=== PATIENT | female | born 1960 | race Caucasian/White ===

== ENCOUNTER 2020-06-07 16:22 | Outpatient (REF) | payer OTHER, SELFPAY ==
--- NOTE | 2020-06-07 13:30 | PAPFT_PTH ---
PATIENT: Irina Fairbanks LOC: [facility] U#:[id number] AGE/SX: 59/F ROOM: RE06/07/[address]: MARGARET Hernandez : 1960 BED: DIS: 06/07/2020 SPEC #: [id number] RECD: 06/07/20 17:47 STATUS: RUBÉN REQ #: [id number] LATRICE: 06/07/20 13:[address]: Diana Jane [facility] Cytology RECD BY: Taylor Sebastian ENTERED: 06/07/20 17:48 SP TYPE: PAPFT OTHR DR: Danielle Tineo APRN Tissues: 1 - CX/ENDOCX FOR PAP SMEARS Procedures: PAP THIN PREP/[facility]VM Screening HPV DNA PROBE Comments: [id number] (ARTESIA WELLS)
== END 2020-06-07 16:42 ==
LOC: LBN 16:22
PROVIDERS: Visit Provider Nurse Practitioner Family
DX: Z12.4 Encounter for screening for malignant neoplasm of cervix (principal)
CPT/HCPCS: 88142; 87624

== ENCOUNTER 2020-06-29 00:18 | Outpatient (CLI) | payer OTHER, SELFPAY ==
--- NOTE | 2020-06-29 12:25 | DI.MAMMO_ITS ---
EXAM: MG MAMMO SCREENING CLINICAL HISTORY: screening TECHNIQUE: Mammograms were interpreted according to the usual protocol including computer analysis w [employer] CAD system, tomosynthesis and C-view imaging. COMPARISON: FINDINGS: The breasts are of moderate density with fairly symmetrical distribution of fibroglandular tissue. N o dominant mass or clumped microcalcification is identified in either breast. The current examinatio n is compared with previous examinations including January 2016 and there has been no gross interval hafsa nge in appearance in comparison with the prior studies. IMPRESSION: No specific evidence of malignancy at this time. Routine screening examinations are suggested at yea rly intervals in this age group according to the ACS ACR guidelines. BI-RADS Category 1 - Negative Breast Density - Category B - Scattered areas of fibroglandular density
== END 2020-06-29 00:38 ==
PROVIDERS: Visit Provider Nurse Practitioner Family
DX: Z12.31 Encounter for screening mammogram for malignant neoplasm of breast (principal)
CPT/HCPCS: 77063; 77067

== ENCOUNTER 2021-07-05 02:22 | Outpatient (CLI) | payer OTHER, SELFPAY ==
[2021-07-05 12:27] LABS: Source Nasal/Nares
[2021-07-05 15:11] LABS: COVID-19 PCR Negative (Negative)
== END 2021-07-05 02:23 | disposition home or self-care (01) ==
LOC: LBO 02:23
PROVIDERS: PCP Nurse Practitioner Family; Visit Provider Surgery
DX: Z20.822 Contact with and (suspected) exposure to COVID-19 (principal)
CPT/HCPCS: 87635

== ENCOUNTER 2021-07-07 09:07 | Day surgery (SDC) | payer OTHER, SELFPAY ==
--- NOTE | 2021-07-06 17:19 | W.COLOREPORT ---
Colonoscopy Report Date of procedure: 07/07/21 Pre-op diagnosis general: crc screen Post-op diagnosis procedure note: other (divertic/polyps ) Surgeon: Sandra Crowell Anesthesia Type: General LMA/ETT Estimated blood loss (mL): 1 Pathology: other Complications: None Disposition: same day Prep: Miralax/Dulcolax Retraction Time: 10 Procedure Description: After informed consent was obtained the patient was taken to the procedure room and placed in a left decubitous position. Monitors were applied and a time out was done. The patients name, date of , procedure, allergies to medications and metal in their body was reviewed. The patient was then sedated. Once sedated and comfortable a rectal exam was done. External exam was normal. Internal exam revealed a normal sphincter tone and no palpable masses. The scope was then introduced and retrofelexed. No internal hemorrhoids were identified. The scope was then advanced to the cecum w/out difficulty. The TI and appendiceal orifice were identified. The prep was . The scope was then slowly retracted over 10 minutes back into the rectum. She does have diverticular disease-they are small and few, confined to the sigmoid colon. There is no signs of active bleeding or infection. She has x3 small polyps. All are flat, 5 mm polyp. 1 is at 70 cm. And 2 were in the rectum. All are removed with a cold biting forcep. All specimens are retrieved and no bleeding is noted.. The scope was removed and the patient was woken up and taken back to Same day surgery in stable condition. The patient tolerated the procedure well and there were no immediate complications. Follow up: The patient should follow up in 5-7years, path pd, unless they develop changes in bowel habits or other new gastrointestinal complaints.
--- NOTE | 2021-07-06 17:21 | PDOC.DSDIS_ITS ---
Discharge Plan Disposition Patient Disposition: HOME Condition: Good Discharge Details Reason For Visit: colon scope Attending Provider: Sandra Crowell Primary Care Provider: Diana Jane Home Meds and New Rx's Prescriptions: Continued cholecalciferol (vitamin D3) 50 mcg (2,000 unit) capsule 50 mcg PO DAILY RF: 0 Discontinued polyethylene glycol 3350 17 gram/dose powder 238 g PO ONCE Qty: 238 RF: 0 bisacodyl [Dulcolax (bisacodyl)] 5 mg tablet,delayed release (DR/EC) 5 mg PO ONCE Qty: 4 RF: 0 Discharge Instructions Additional Instructions: DSU Colonoscopy Post- Op Instructions Instructions for Everyone who is given Anesthesia: For your safety, please do the following for the next twenty-four (24) hours: *Do Not operate a motor vehicle (car, truck, motorcycle, etc.) *Do Not drink alcoholic beverages or use any recreational drugs for the first 24 hours or while taking pain medications. The medications in your body may have a reaction that can be dangerous. *Do Not make any important decisions or sign any important papers. Findings: -diverticula -polyps Follow up: repeat scope in 5-7yrs. My office will send a letter in 2 to 3 weeks time detailing what types of polyps they were and when we want you to repeat the colonoscopy. 1. No lifting over 20 pounds or strenuous activity for the first 24 hours after your procedure. After 24 hours there are no restrictions on your activity but you may feel fatigued for a few days. 2. After you arrive home you may have a light meal and return to your normal diet as you can tolerate it without feeling sick to your stomach. 3. You may have a bloated, gaseous feeling in your belly (abdomen) after a colonoscopy. Passing gas and belching will help. Walking or lying down on your left side with your knees flexed may relieve the discomfort. Call the office at [phone] (Office) or [phone] (Hospital) right away if you notice any of the following: a.Vomiting of blood or ?coffee ground stools?. b.Rectal bleeding 1Tbsp, blood clots or continuous bleeding. c.Severe belly (abdominal) pain. d.A hard distended belly (abdomen) and an inability to pass gas. 4. Please don?t expect to have a normal BM (bowel movement) for 2-3 days after your procedure. 5. If there are questions regarding the findings of your procedure, please contact your doctor 6. If you are unable to contact your doctor with a problem, contact the hospital at [phone]. 7. Continue all your regular medications unless directed otherwise. I understand the above instructions and have no questions. Signature of Patient or Adult Escort Name of Responsible Adult Escort Signature of Nurse Date/Time Activity:: see above Diet:: see above Discharge Orders Discharge Orders: Discharge Order (Routine); Ordered 07/06/21 Ordered By: Sandra Crowell DS: Diagnosis Discharge Diagnosis (1) Screening for colon cancer: Status: Deleted (2) Diverticula of colon: Status: Acute (3) History of colon polyps: Status: Acute
[2021-07-07 09:22] VITALS: BP 96/63; PULSE 97; RESP 16; TEMP 36.6; O2SAT 97
--- NOTE | 2021-07-07 09:30 | W.ANESPRE ---
General Info Date of Service Date Performed: 07/07/21 Height: 5 ft 8 in Weight: 64.4 kg Body Mass Index (BMI): 21.6 Surgical Procedure: Operation Date: 07/07/21 09:50 Proposed Procedures Side Surgeon p Colonoscopy Sandra Crowell, Actual Procedures Side Surgeon p Colonoscopy Not Applicable Sandra Crowell, Pre-Op Diagnosis Post-Op Diagnosis COLON CANCER SCREENING Meds Allergies and Home Medications Allergies Allergy/AdvReac Type Severity Reaction Status Date / Time No Known Allergies Allergy Unverified 07/07/21 09:25 Home Medication Medication Instructions Recorded cholecalciferol (vitamin D3) 50 50 mcg PO DAILY 06/23/21 mcg (2,000 unit) capsule Current Visit Medications: Current Medications Generic Name Dose Route Start Last Admin Trade Name Freq PRN Reason Stop Dose Admin Hyoscyamine Sulfate 0.125 mg 07/06/21 17:18 Hyoscyamine 0.125 Mg Sl/Oral/Chew SL DIRECTED PRN Ringer's Solution 1,000 mls @ 80 mls/hr 07/07/21 06:00 IV 08/05/21 23:59 INFUSION ARAVIND IV Miscellaneous Supplies 1 each 07/07/21 06:00 Iv Access IV 08/05/21 23:59 DIRECTED ARAVIND Ondansetron HCl 4 mg 07/06/21 17:18 Ondansetron 4 Mg/2 Ml Vial IVP Q4H PRN PRN Nausea / Vomiting Sodium Chloride 0 ml 07/07/21 06:00 Normal Saline Flush 10 Ml Syr IV 08/05/21 23:59 PRN PRN Sodium Chloride 0 ml 07/07/21 06:00 Normal Saline 10 Ml Vial IJ 08/05/21 23:59 DIRECTED PRN Sterile Water 0 ml 07/07/21 06:00 Water,Injection,Sterile 10 Ml Vial IJ 08/05/21 23:59 DIRECTED PRN PFSH Active Problems Active Problems: Problem Status Onset Code Screening for colon cancer Z12.11 Medical History Active Problem List (Updated 07/07/21 @ 09:37 by Dionne Moncada) Screening for colon cancer (Acute) Medical History (Updated 07/07/21 @ 09:37 by Dionne Moncada) Palpitations Surgical History Surgical History Hx of dilation and curettage 1994 Tobacco Smoking/Tobacco Use Status: Never Alcohol Alcohol Intake: current Alcohol intake frequency: a few times a month Substance Use Substance use type: does not use Vital Signs and Lab Results Vital Signs Most Recent Vital Signs in EMR: Most Recent Vital Signs Temp Pulse Resp BP Pulse Ox 36.6 C 97 H 16 96/63 L 97 07/07/21 09:22 07/07/21 09:22 07/07/21 09:22 07/07/21 09:22 07/07/21 09:22 Lab Results Blood Type / Crossmatch: No Data to Display Complete Blood Count: No Data to Display Complete Metabolic Panel: No Data to Display Liver Function Panel: No Data to Display Coagulation Panel: No Data to Display Cardiac Panel: No Data to Display Arterial Blood Gas: No Data to Display Venous Blood Gas: No Data to Display Pancreas Panel: No Data to Display Thyroid Panel: No Data to Display Infectious Disease: Coronavirus (COVID-19)(PCR) Negative (Negative) 07/05/21 09:25 07/05/21 Coronavirus 2019 Source Nasal/Nares 07/05/21 09:25 07/05/21 Blood Cultures: No Data to Display Toxicology Panel: No Data to Display Anesthesia Assessment and Plan Anesthesia History Personal History: No History of Anesthesia Complications and Malignant Hyperthermia Family History: No Family History of Anesthesia Complications and Malignant Hyperthermia Exercise Tolerance Exercise Tolerance: Metabolic Equivalents>4 Pertinent Negatives Pertinent Negatives: No Symptoms of GERD, No Major Cardiovascular Symptoms or Complaints (Palpitations, worked up in past slight mitral valve leak per patient) and No Major Pulmonary Symptoms or Complaints Cardiac & Pulmonary Exam Cardiac Exam: Normal S1/S2 Heart Sounds Pulmonary Exam: Clear Bilateral Breath Sounds Implantable Cardiac Device Does patient have a Pacemaker or an ICD?: No Airway Exam Known Difficult Airway: No Mallampati Class: 1 Mouth Opening: Normal (> 3cm) Thyromental Distance: Greater than 3 cm Neck Range of Motion: Full ROM Neck Circumference: Normal Teeth Condition: Normal Dentition and Other (Prominent front teeth) ASA Classification ASA Score: ASA 2 Emergency Case?: No NPO Status NPO Status: NPO Clears >2 hours, Solids >8 hours Anesthesia Plan Resuscitation Status: Full Code Anesthesia Technique: General Anesthesia Airway Planned: Natural Airway Monitors Used: Standard Monitors
[2021-07-07 09:36] VITALS: BMI 21.6
[2021-07-07] MEDS: Lactated Ringers 1,000 ML 80 ML IV (09:36)
--- NOTE | 2021-07-07 09:54 | BOWEL_PTH ---
PATIENT: Irina Fairbanks LOC: [facility] U#:[id number] AGE/SX: 60/F ROOM: RE07/07/[address]: Sandra Crowell : 1960 BED: DIS: 07/07/2021 SPEC #: [id number] RECD: 07/08/21 10:09 STATUS: RUBÉN RE #: [id number] LATRICE: 07/07/21 09:[address]: Sandra Crowell DEPT: Surgical Specimen RECD BY: Irina Bernal ENTERED: 07/08/21 10:11 SP TYPE: Bowel OTHR DR: Diana Jane, MACHINERY ENGINEER Tissues: 1 - BIOPSY BOWEL 2 - BIOPSY BOWEL Procedures: GROSS AND MICRO LEVEL 4 Comments: [id number]
[2021-07-07 10:11] VITALS: BP 87/56; PULSE 71; RESP 16; TEMP 36.6; O2SAT 100
[2021-07-07 10:51] VITALS: BP 115/67; PULSE 78; RESP 16; TEMP 36.4; O2SAT 98
--- NOTE | 2021-07-07 11:06 | W.ANESPOSTOP ---
Postoperative Evaluation Date, Time and Location Date Performed: 07/07/21 Time Performed: 10:49 Patient Location: Day Surgery Unit Vital Signs Most Recent Imported Vital Signs: Most Recent Vital Signs Temp Pulse Resp BP Pulse Ox 36.4 C L 78 16 115/67 98 07/07/21 10:51 07/07/21 10:51 07/07/21 10:51 07/07/21 10:51 07/07/21 10:51 Pain Score Most Recent Pain Score: Most Recent Pain Score Pain Level 0 07/07/21 10:51 Assessment Mental Status: Awake (Alert & Oriented to Patient Baseline) Airway and Respiratory Function: Patent airway with normal (patient baseline) respiratory exam Cardiovascular Function: Hemodynamically Stable Hydration Status: Adequately Hydrated Nausea & Vomiting: No Nausea or Vomiting Pain: Pt. Denies Any Pain Peripheral Nerve Block: Patient did not receive a nerve block
== END 2021-07-07 11:09 | disposition home or self-care (01) ==
PROVIDERS: PCP Nurse Practitioner Family; Visit Provider Surgery
PROC: 0DJD8ZZ Inspection of Lower Intestinal Tract, Via Natural or Artificial Opening Endoscopic (ICD-10-PCS; CPT 45378; principal; 2021-07-07 09:45)
DX: Z12.11 Encounter for screening for malignant neoplasm of colon (principal); D12.8 Benign neoplasm of rectum; D12.4 Benign neoplasm of descending colon; K57.30 Diverticulosis of large intestine without perforation or abscess without bleeding; Z86.010 Personal history of colon polyps
CPT/HCPCS: 45380; 88305; J2001

== ENCOUNTER 2022-11-12 02:13 | Emergency (ER) | payer BC, SELFPAY ==
[2022-11-12] VITALS (30 sets, daily range): BP systolic 103–115; BP diastolic 55–70; PULSE 79–93; RESP 11–22; TEMP 36.9; O2SAT 95–100
--- NOTE | 2022-11-12 02:00 | RT.EKG_ITS ---
APPROVED REPORT Exam: Resting ECG Reason for Exam: sudden onset dizziness Patient Location: E HR:81 bpm ECG Measurements Heart Rate 81 AXIS WY 160 P 76 QRSd 93 QRS 35 QT 386 T 59 QTc 450 Conclusion Sinus rhythm...normal P axis, V-rate 60- 99 Narrow complex normal sinus rhythm at a rate of 81. Normal axis. Intervals within normal limits. N o ST segment abnormalities. No T wave inversions. No acute injury pattern. No prior for comparison .
--- NOTE | 2022-11-12 02:15 | DI.CT_ITS ---
Exam(s) CT HEAD WO EXAM: CT HEAD WO CLINICAL HISTORY: History of falling with head strike. TECHNIQUE: Imaging Protocol: Axial computed tomography images with coronal and sagittal reformatted images were created and reviewed COMPARISON: No exams were available for comparison FINDINGS: Ventricles and Extra axial spaces: Normal in size and morphology for the patient's age. Hemorrhage: None. Cerebral parenchyma: Normal. Midline shift: None. Brainstem/Cerebellum: Normal. Calvarium: Normal. Visualized Paranasal sinuses/Mastoids: Clear. Soft Tissues: There is mild swelling in the right periorbital soft tissue region. The globe and retr o-orbital soft tissues are unremarkable. IMPRESSION: 1. No acute intracranial process. 2. Mild right periorbital soft tissue swelling. RADIATION DOSE DELIVERED: 691.61mGy.cm Total DLP DATA REPOSITORY: All CT scans at this facility are submitted to the National Radiology Data Registry (NRDR) Dose Index Registry (DIR) with the [employer] (ACR). RADIATION OPTIMIZATION: All CT scans at this facility use at least one of these dose optimization te chniques: automated exposure control; mA and/or kV adjustment per patient size (includes targeted exa ms where dose is matched to clinical indication); or iterative reconstruction.
--- NOTE | 2022-11-12 02:28 | W.ED.GENAD ---
Discharge Plan Disposition Patient Disposition: Home Discharge Details Clinical Impression: Syncope and collapse, Eyebrow laceration, Immunization, tetanus-diphtheria ED Provider: Ruben Dave Home Meds and New Rx's Prescriptions: No Action No Known Home Meds Discharge Instructions Additional Instructions: You were seen in the emergency department for your episode of passing out. Your blood work showed no sign of heart attack. Your CAT scan showed no sign of any bleeding in your head nor any blood clots in your lungs. Your laceration was closed with Steri-Strips. Please keep these on until they fall off on their own. Please do not soak these in water. If you develop streaking signs of infection from your laceration or any fevers please return to the emergency department. Otherwise please follow-up with your primary care provider for the possibility of a Holter monitor and an echocardiogram which is an ultrasound of your heart. If you develop black or bloody stools or if you pass out again please return to the emergency department. Medical Decision Making This is an overall well-appearing normothermic and not tachycardic 62-year-old female with syncope and collapse concerning for multiple etiologies. She has had chest tightness but a nonischemic ECG. We will obtain 2 sets of troponin given recent onset of symptoms. She is low risk for PE however given her syncope we will send a D-dimer and based on years criteria will tolerate up to 1000 and if less than or equal to 1000 will defer CTA given no hemoptysis and no calf pain. She said no black nor bloody stools to suggest symptomatic anemia. She is neurologically intact and so my suspicion is low for CVA. Will obtain a CT head given head strike to assess for intracranial hemorrhage. Given no APD I am not concerned for retrobulbar hematoma. Her laceration is superior to her lacrimal sac so I am not concerned for lacrimal sac involvement. Will provide LET for laceration cleansed and assess for need for primary closure with sutures versus Steri-Strips. It is certainly possible she could have mild aortic stenosis however I did not hear a systolic ejection murmur. In addition her syncope was nonexertional. She has no history of heart failure. She does not currently endorse any shortness of breath. If her ED evaluation is unremarkable she will likely benefit from a Holter monitor with her primary care provider to assess for any dysrhythmias and an echocardiogram. She had no tonic-clonic like activity nor any postictal phase to suggest seizure. Based on the location of the laceration I am not concerned for lacrimal sac involvement. Per Nexus criteria, cervical CT not obtained. The patient had no c-spine midline tenderness, no evidence of intoxication, was AAOx3, had no focal neurological deficits, and no painful distracting injuries. In the setting of syncope I considered: High risk features: 1. Age of the patient (elderly a greatest risk) 2. Syncope during exertion 3. Family history of sudden [place] syncope rule: 1. History of CHF 2. Hematocrit < 30 3. EKG abnormalities 4. Present shortness of breath 5. Systolic blood pressure less than 90 Cardiac arrhythmia/EKG or abnormalities considered: 1. ACS: No ST changes 2. Tachy-nabeel: No blocks 3. WPW: No delta wave 4. Brugada: No RSR'; R-bundle appearance 5. HCM: No LVH; needle Qs/ T-wave inversions 6. Short/ Long QT: 300 < QTc < 500; no family hx 7. Arrhythmogenic Right Ventricular Dysplasia: No epsilon wave, no inverted Ts in anterior precordium 8. No signs of ASD in inferior leads. 2:53 AM CBC with mild leukocytosis no anemia nor thrombocytopenia. Compared to prior dated 8 years ago anemia has resolved and leukocytosis is not present.Reassuring basic metabolic panel with no EVERT no hyperglycemia no anion gap. Mildly elevated BUN. 3:15 AM Patient's D-dimer returned markedly elevated. We will proceed to CTA to assess for PE. Initial troponin negative. 6:15 AM I met with the patient after her second troponin returned negative. She had no dysrhythmias on telemetry in the ED. She had no recurrent syncope. I have asked health community youth secretary Zoë to have the patient set up with a primary care provider to have a Holter monitor and an echocardiogram. I advised the patient, her sister, and her to return the patient to the ED if she developed recurrent syncope any focal areas of weakness or if they had any other concerns. Chronic conditions affecting the care of the patient: N/A History obtained from an outside historian: Paramedics and External record review: N/A Diagnostic interpretations performed by me: [Per my independent interpretation chest x-ray shows:] N/A [Per my independent interpretation EKG shows:] Narrow complex normal sinus rhythm at a rate of 81. Normal axis. Intervals within normal limits. No ST segment abnormalities. No T wave inversions. No acute injury pattern. Medications: Fluids & analgesia with IV acetaminophen Social determinants of health affecting disposition: N/A Management discussed with: N/A Treatment/interventions considered: Hospitalization given syncope but given age less than 65 and no red high risk features I felt that the patient was appropriate for discharge with outpatient follow-up. Response to therapies provided: [place] improved following normal saline HPI General Date/Time Provider Initiated Documentation: 11/12/22 02:24. HPI Narrative: This is a previously healthy 62-year-old female arriving via EMS following a syncopal episode. Patient was in her usual state of health yesterday evening. She went to bed. She woke up and reportedly felt dizzy and subsequently syncopized. She called out her 's name beforehand. She fell forward and hit her face breaking her glasses on the right side of her face. She did not lose control of her bowels or bladder. She has not had any black nor bloody stools. Her dizziness has resolved. She does have some tightness in her chest. It does not radiate. She has no history of hypertension hyperlipidemia coronary artery disease nor diabetes. She had a similar episode approximately 3 months ago when she was in [place] but she declined transport at that time. She received 4 mg of ondansetron and 500 cc of fluid with the paramedics. She reports that she remotely had a Holter monitor which showed an arrhythmia and an echocardiogram which showed mitral regurgitation. There is no family history of sudden cardiac . She has had no neck pain. She denies routine tobacco and illicits. She occasionally drinks ethanol but denies history of withdrawal. She takes no medications. Related Data Home Medications Medication Instructions Recorded Confirmed Unknown [No Known Home Meds] 11/12/22 11/12/22 Allergies Allergy/AdvReac Type Severity Reaction Status Date / Time No Known Allergies Allergy Unverified 11/12/22 02:49 [facility] All Active Problems (Updated 11/12/22 @ 03:24 by Ruben Dave MD) Syncope and collapse (Acute) Eyebrow laceration (Acute) Immunization, tetanus-diphtheria (Acute) Tubular adenoma (Acute) History of colon polyps (Acute) Diverticula of colon (Acute) Medical History (Updated 11/12/22 @ 03:24 by Ruben Dave MD) Palpitations Surgical History (Updated 07/13/21 @ 13:43 by Saira Porter RN) History of colonoscopy with polypectomy (~07/07/21) Hx of dilation and curettage 1994 Family History Mother Hyperlipidemia Father Esophageal cancer Sister Vaginal cancer Social History (Updated 06/23/21 @ 09:36 by PATY Babin) Smoking/Tobacco Use Status: Never Smoking risk assessment performed?: Yes Alcohol Intake: current Alcohol Intake frequency: a few times a month Substance use type: does not use Do you feel safe at home: Yes Do you feel safe in your relationship?: Yes Exam Narrative Exam Narrative: General: Anxious-appearing in no acute distress speaking in complete sentences. Head: Normocephalic, on the right eyebrow there is a hemostatic approximately 2 cm in length. Eye: Pupils equal, round reactive to light. Extraocular eye movements intact. No conjunctival injection. No scleral icterus. No afferent pupillary defect. Laceration is superior to the lacrimal sac. Ear, nose, mouth, throat: Grossly normal inspection. Normal voice, handling secretions normally. Neck: Trachea midline. Cardiovascular: Well-perfused distal extremities. Respiratory: Nonlabored respiration. Gastrointestinal: Nondistended abdomen. Musculoskeletal: No edema. Moving all 4 extremities spontaneously. Skin: Normal for age and race, grossly normal temperature and turgor. No acute rash. Neurologic: Alert and appropriate, no apparent acute deficits. GCS 15. Cranial nerves II through XII intact grossly. No dysmetria. No dysdiadochokinesia. 5 out of 5 bilateral upper and lower extremity strength. Psychiatric: Mood and manner are appropriate. Grooming and personal hygiene are appropriate. Procedures Laceration Laceration 1: Site: face Side (If applicable): right Size (cm): 2 Description: linear Depth: simple, single layer Local Anesthetic: other anesthetic (L ET) Pre-repair: irrigated extensively Skin layer closed with: other (5 Steri-Strips)
[2022-11-12] MEDS: Lidocaine/Epinephri/Tetracaine Topical Gel 3 ML TP (02:37)
[2022-11-12] MEDS: Acetaminophen 500 MG TAB 1000 MG PO (02:37)
[2022-11-12 02:45] LABS: Abs Immature Grans 0.05 10^3/uL (0.0-0.06); Absolute Eosinophil Count 0.05 10^3/uL (0.0-0.7); Absolute Lymphocyte Count 1.21 10^3/uL (1.2-3.4); Basophils % 0.4; Eosinophils % 0.4; HCT 41.1 % (36.0-46.0); HGB 13.7 g/dL (11.2-15.7); Immature Grans % 0.4; Lymphocytes % 10.6; MCH 28.5 pg (27.0-33.0); MCHC 33.3 % (32.0-36.0); MCV 85 fL (80-95); MPV 9.1 fL (8.0-11.0); Monocytes % 3.5; Neutrophils % 84.7; Platelet Count 241 10^3/uL (130-400); RBC 4.81 10^6/uL (3.93-5.22); RDW 12.6 % (11.7-14.6); RDW-SD 39.4 fL; WBC 11.39 10^3/uL (4.4-10.8)
[2022-11-12 02:48] LABS: Absolute Basophil Count 0.05 10^3/uL (0.0-0.2); Absolute Neutrophil Count 9.65 10^3/uL (1.2-6.7)
[2022-11-12 02:56] LABS: Anion Gap 7.8 mmol/L (3-11); BUN 19 mg/dL (7-18); CO2 28.2 mmol/L (21.0-32.0); CREATININE 0.9 mg/dL (0.55-1.02); Calcium 8.5 mg/dL (8.5-10.1); Chloride 108 mmol/L (98-107); ETHANOL BLOOD < 3.0 mg/dL (<10); Estimated GFR 73.19 (mL/min/1.73m2); Glucose 102 mg/dL (74-106); Potassium 3.6 mmol/L (3.5-5.1); Sodium 144 mmol/L (136-145)
[2022-11-12] MEDS: Normal Saline 500 ML IV (03:02)
[2022-11-12 03:03] LABS: Troponin I < 50 ng/L (<or=60)
--- NOTE | 2022-11-12 03:15 | DI.CT_ITS ---
Exam(s) CT CHEST PE CTA EXAM: CT CHEST PE CTA CLINICAL HISTORY: Positive D-dimer and syncope. TECHNIQUE: Imaging Protocol: Axial CT angiography was performed with multi-slice acquisition and mu lti-planar and/or 3D reconstructions. CONTRAST MATERIAL: Intravenous: Omnipaque 350 contrast volume:65 mL COMPARISON: No exams were available for comparison FINDINGS: Tracheobronchial tree: Patent where visualized. Pulmonary parenchyma: No consolidation or dominant measurable mass. No architectural distortion. Mild dependent atelectatic changes. Pulmonary Arteries: No evidence of filling defect to suggest pulmonary emboli. Mediastinum and Lisa: No dominant adenopathy or fluid collection. The esophagus is unremarkable. Visualized thyroid gland: Unremarkable. Pleura: No effusion or pneumothorax. Heart: The heart is not dilated. No coronary artery calcifications are seen. No pericardial effusion. Aorta: Thoracic aorta non-dilated. No evidence of dissection. Upper abdomen: There are multiple hepatic cysts present. Soft tissues: Unremarkable. Bones: Within normal limits for the patient's age. IMPRESSION: 1. No evidence of pulmonary embolism, thoracic aortic dissection or aneurysm. 2. No acute pulmonary process. RADIATION DOSE DELIVERED: 363.99mGy.cm Total DLP DATA REPOSITORY: All CT scans at this facility are submitted to the National Radiology Data Registry (NRDR) Dose Index Registry (DIR) with the [employer] ([employer]). RADIATION OPTIMIZATION: All CT scans at this facility use at least one of these dose optimization te chniques: automated exposure control; mA and/or kV adjustment per patient size (includes targeted exa ms where dose is matched to clinical indication); or iterative reconstruction.
[2022-11-12 03:16] LABS: D-Dimer 2721 ng/mlFEU (<500)
[2022-11-12] MEDS: Omnipaque 350 MG/ML 100 ML BTL IJ (03:25)
[2022-11-12] MEDS: Normal Saline Flush 10 ML SYR IVP (03:26)
[2022-11-12] MEDS: Normal Saline - Diluent 50 ML VIAL IJ (03:26)
--- NOTE | 2022-11-12 04:03 | DI.VRAD_ITS ---
PROCEDURE INFORMATION: Exam: CT Head Without Contrast Exam date and time: 11/12/2022 3:30 AM Age: 62 years old Clinical indication: Injury or trauma; Laceration; Consciousness not specified; Without residual foreign body; Injury date: 11/12/22; Injury details: HX of falling with head strike, lac lateral of right eye TECHNIQUE: Imaging protocol: Computed tomography of the head without contrast. Radiation optimization: All CT scans at this facility use at least one of these dose optimization techniques: automated exposure control; mA and/or kV adjustment per patient size (includes targeted exams where dose is matched to clinical indication); or iterative reconstruction. COMPARISON: No relevant prior studies available. FINDINGS: Brain: Normal. No hemorrhage. Unremarkable white matter. No mass effect. Cerebral ventricles: No ventriculomegaly. Paranasal sinuses: Visualized sinuses are unremarkable. No fluid levels. Mastoid air cells: Visualized mastoid air cells are well aerated. Bones/joints: Unremarkable. No acute fracture. Soft tissues: Right preseptal periorbital soft tissue swelling. Globe appears intact IMPRESSION: 1. Right preseptal periorbital soft tissue swelling. Globe appears intact 2. No acute intracranial hemorrhage Dictated and Authenticated by: Lidia Camara MD. Ordering:LEEANNA Miranda MD
--- NOTE | 2022-11-12 04:11 | DI.VRAD_ITS ---
PROCEDURE INFORMATION: Exam: CTA Chest With Contrast Exam date and time: 11/12/2022 3:50 AM Age: 62 years old Clinical indication: Abnormal findings; Abnormal diagnostic tests; Elevated d-dimer; Shortness of breath and other: Syncope; Patient HX: Syncope and positive d-dimer TECHNIQUE: Imaging protocol: Computed tomographic angiography of the chest with contrast. 3D rendering (Not supervised by radiologist): MIP and/or 3D reconstructed images were created by the technologist. Radiation optimization: All CT scans at this facility use at least one of these dose optimization techniques: automated exposure control; mA and/or kV adjustment per patient size (includes targeted exams where dose is matched to clinical indication); or iterative reconstruction. Contrast material: OMNIPAQUE 350; Contrast volume: 65 ml; Contrast route: INTRAVENOUS (IV); COMPARISON: No relevant prior studies available. FINDINGS: Pulmonary arteries: Normal. No pulmonary emboli. Aorta: Unremarkable. No aortic aneurysm. No aortic dissection. Lungs: Unremarkable. No consolidation. No masses. Pleural spaces: Unremarkable. No pneumothorax. No pleural effusion. Heart: Unremarkable. No cardiomegaly. No pericardial effusion. Lymph nodes: Unremarkable. No enlarged lymph nodes. Liver: Multiple simple hepatic cysts present Bones/joints: Unremarkable. No acute fracture. Soft tissues: Unremarkable. IMPRESSION: 1. No evidence of pulmonary embolism 2. No focal consolidation Dictated and Authenticated by: Lidai Camara MD. Ordering:LEEANNA Miranda MD
[2022-11-12 05:54] LABS: Troponin I < 50 ng/L (<or=60)
--- NOTE | 2022-11-12 06:16 | NUR.NOTE ---
Referral to Care Management, patient needs to establish pcp to f/u for syncope and to determine if patient needs stress test and echocardiogram.Nursing Note:
--- NOTE | 2022-11-12 10:22 | NUR.NOTE ---
Nursing Note: Accessed pt chart to see who the PCP was.
== END 2022-11-12 06:44 | disposition home or self-care (01) ==
LOC: ER 06:29
PROVIDERS: Emergency Provider Emergency Medicine
DX: R55 Syncope and collapse (principal); S01.111A Laceration without foreign body of right eyelid and periocular area, initial encounter; D72.829 Elevated white blood cell count, unspecified; R79.89 Other specified abnormal findings of blood chemistry; Z23 Encounter for immunization; W19.XXXA Unspecified fall, initial encounter; W22.8XXA Striking against or struck by other objects, initial encounter
CPT/HCPCS: 12011; 71275; 80048; 90471; 93005; 96360; 99285; 70450; 80320; 84484; 85025; 85379; 93010; J3490

== ENCOUNTER 2022-11-15 11:19 | Outpatient (RCR) | payer BC, SELFPAY ==
--- NOTE | 2022-11-15 11:15 | HOLTER_ITS ---
APPROVED REPORT Conclusion This is a 48-hour Holter monitor ordered for syncope Rhythm throughout is sinus with an average heart rate of 78. Minimum was 58, maximum 141 There were rare ventricular ectopic beats There were occasional atrial premature beats There was no atrial fibrillation, no SVT, no high-grade AV block, no pauses greater than 3 seconds Reported patient symptoms had no correlation to any dysrhythmia
== END 2022-12-02 23:59 | disposition home or self-care (01) ==
LOC: CARDOPNVT 11:19
PROVIDERS: PCP Family Medicine; Visit Provider Family Medicine
DX: R55 Syncope and collapse (principal); I49.1 Atrial premature depolarization
CPT/HCPCS: 93225; 93226

== ENCOUNTER 2022-11-30 01:42 | Outpatient (CLI) | payer BC, SELFPAY ==
[2022-11-30 12:37] LABS: ALT 25 U/L (14-59); AST 17 U/L (15-37); Albumin 4.1 g/dL (3.4-5.0); Alkaline Phosphatase 131 U/L (46-116); Bilirubin, Direct 0.1 mg/dL (0.0-0.2); Bilirubin, Total 0.5 mg/dL (0.2-1.0); TSH (W/Ref FT4) 0.71 uIU/mL (0.36-3.74); Total Protein 7.6 g/dL (6.4-8.2)
[2022-11-30 12:48] LABS: Calculated LDL 116 mg/dL (<100); Cholesterol 192 mg/dL (<200); HDL Cholesterol 65 mg/dL (40-60); Triglyceride 58 mg/dL (<150)
[2022-12-05 11:03] LABS: Metanephrine, Free <0.20 nmol/L (<0.50)
== END 2022-11-30 01:43 | disposition home or self-care (01) ==
PROVIDERS: PCP Family Medicine; Visit Provider Family Medicine
DX: Z13.6 Encounter for screening for cardiovascular disorders; R55 Syncope and collapse
CPT/HCPCS: 36415; 80061; 80076; 82533; 83835; 84443

== ENCOUNTER 2022-11-30 10:56 | Outpatient (CLI) | payer BC, SELFPAY | END 2022-11-30 10:57 | disposition home or self-care (01) | PROVIDERS: PCP Family Medicine; Visit Provider Family Medicine | DX: R55 Syncope and collapse (principal) | CPT/HCPCS: 93270 ==

== ENCOUNTER 2022-12-03 14:38 | Outpatient (REF) | payer BC, SELFPAY ==
--- NOTE | 2022-12-03 12:00 | PAPFT_PTH ---
PATIENT: Irina Fairbanks LOC: [facility] U#:[id number] AGE/SX: 62/F ROOM: RE12/03/[address]: Emma Jensen MD : 1960 BED: DIS: 12/03/2022 SPEC #: [id number] RECD: 12/03/22 18:16 STATUS: RUBÉN REVonnie #: [id number] LATRICE: 12/03/22 12:[address]: Emma Jensen DEPT: [facility] Cytology RECD BY: Taylor Sebastian ENTERED: 12/03/22 18:17 SP TYPE: PAPFT AISLINN DR: Dorothy Davila Tissues: 1 - CX/ENDOCX FOR PAP SMEARS Procedures: PAP THIN PREP/UVM Screening HPV DNA PROBE Comments: [id number]
== END 2022-12-03 14:39 | disposition home or self-care (01) ==
LOC: LBN 14:38
PROVIDERS: PCP Family Medicine; Visit Provider Obstetrics & Gynecology
DX: Z12.4 Encounter for screening for malignant neoplasm of cervix (principal); Z11.51 Encounter for screening for human papillomavirus (HPV)
CPT/HCPCS: 88142; 87624

== ENCOUNTER 2022-12-04 04:27 | Outpatient (CLI) | payer BC, SELFPAY ==
--- NOTE | 2022-12-04 06:45 | DI.MAMMO_ITS ---
Exam(s) MAMMO SCREENING EXAM: MAMMO SCREENING CLINICAL HISTORY: screening,z12.39. TECHNIQUE: Bilateral full field digital CC and MLO mammographic images were obtained with 3D tomosyn thesis and utilizing computer aided detection (CAD). COMPARISON: Prior mammograms were reviewed. FINDINGS: There has been no significant change in the appearance and distribution of the fibroglandular tissue. There are no CAD designations. There are no new spiculated masses nor malignant appearing microcalcification groups. There is no significant architectural distortion nor skin thickening-retraction. IMPRESSION: No radiographic evidence of malignancy. BI-RADS Category 1 - Negative Breast Density - Category B - Scattered areas of fibroglandular density Breast density Category C or D implies that the patient has dense breast tissue. Dense breast tissue can make it harder to find cancer on a mammogram. Dense breast tissue is also associated with an incr eased risk of breast cancer. This information about the result of the mammogram report was provided to the patient to raise their awareness. Use this report when you speak with the patient about their risks for breast cancer, which includes their family history. At that time, you may recommend additional screening tests (Ultrasoun d or MRI) as these tests may add significant information. A negative radiographic report should not delay biopsy if a dominant or clinically suspicious mass is present. Up to ten percent of cancers are not identified on mammography. A negative report may reinforce clinical impression. Adenosis and dense breasts may obscure an underlying neoplasm. False positive reports average 6 to 10%. Patient will receive a letter notifying them of these results.
== END 2022-12-04 04:47 ==
PROVIDERS: PCP Family Medicine; Visit Provider Obstetrics & Gynecology
DX: Z12.31 Encounter for screening mammogram for malignant neoplasm of breast (principal)
CPT/HCPCS: 77063; 77067

== ENCOUNTER 2022-12-19 01:56 | Outpatient (CLI) | payer BC, SELFPAY ==
--- NOTE | 2022-12-19 07:28 | DI.US_ITS ---
APPROVED REPORT EXAM: Comprehensive 2D, Doppler, and color-flow Echocardiogram Patient Location: Out-Patient Tortilla Maker: Harry Sanders RDMS, RVT Indications: recurrent syncope Other Information Study Quality: Adequate Conclusion Normal left ventricular wall thickness and chamber size. Ejection fraction is 60 to 65%. Wall motio n is normal Normal right ventricular size and systolic function Both atria are normal in size There is no structural or hemodynamically significant valvular disease. Estimated right ventricular systolic pressure is 17 mmHg Wall motion Left Ventricle The left ventricle is normal size. The left ventricular systolic function is normal. The left ventric ular ejection fraction is within the normal range. There is normal left ventricular wall thickness. T here is normal LV segmental wall motion. There is no ventricular septal defect visualized. LVEF is 60 -65%. Right Ventricle The right ventricle is normal size. The right ventricular systolic function is normal. The RVSP is 17 .5 mmHg. Atria The left atrium size is normal. The right atrium size is normal. The interatrial septum is intact wit h no evidence for an atrial septal defect. Aortic Valve The aortic valve is normal in structure. Aortic valve is trileaflet. There is no aortic valvular sten osis. No aortic regurgitation is present. Mitral Valve The mitral valve is normal in structure. No evidence of mitral valve stenosis. Trace mitral regurgit ation. Mild mitral valve prolapse. Tricuspid Valve The tricuspid valve is normal in structure. There is no tricuspid valve stenosis. Mild tricuspid reg urgitation. Pulmonic Valve The pulmonary valve is normal in structure. There is no pulmonic valvular stenosis. There is no pulmo bryanna valvular regurgitation. Great Vessels The aortic root is normal in size. Ascending aorta is not well visualized. Aortic arch is normal in c aliber. IVC is normal in size and collapses >50% with inspiration. Pericardium There is no pericardial effusion. 2D Dimensions IVSD d PLAX 0.45 cm F: 0.6-1.0 LV Vol A2C d MOD 75.6 mL LVPW d PLAX 0.48 cm F: 0.6 - 1.0 LV Vol A4C d MOD 85.7 mL LVID d PLAX 4.76 cm F: 3.8 - 5.2 LA vol/ BSA A4C s A-L 16.4 mL/m2 LVDs 3.05 cm F: 2.2 - 3.5 LA Area A4C s MOD 11.72 cm2 Ao Root d 2.76 cm F: 2.7 - 3.3 LV EF A4C MOD 61.8 % LV EF Teichholz 65.0 % LV EF A2C MOD 63.4 % LVEF (Bettencourt's) 61.90 % F: 54 - 74 LV EF Biplane MOD 61.9 % LV Volume 64.24 mL F: 46 - 106 SV 50.95 mL LV Volume Index 36.08 mL/m2 F: 29 - 61 SV Index 28.58 mL/m2 LV Vol Biplane MOD 82.3 mL FS 35.55 % M-Mode TAPSE 2.50 cm (M/F) >1.7 LV Diastology MV E' medial 0.103 (>0.07 m/s) E/A Ratio 1.1 LV E/e MED 6.25 (<14) MV E Vmax 0.64 (0.4-1.3 m/s) MV E' lateral 0.088 (>0.1 m/s) MV A Vmax 0.60 (0.4-1.3 m/s) LV E/e LAT 7.30 (<14) MV E/A Ratio 1.05 MV E/E' medial 6.26 MV E/E' lateral 7.30 Aortic Valve LVOT Area 2.96 cm2 AoV Area Vmax 2.96 cm2 LVOT Vmax 1.04 m/s AoV Area/ BSA (Vmax) 1.66 cm2/m2 LVOT Mean Selvin. 0.60 m/s CHIQUI Mean Selvin. 2.67 cm2 LVOT Peak Grad 4.3 mmHg CHIQUI Mean Selvin. Index 1.50 cm2/m2 LVOT Mean Grad 1.8 mmHg LVOT VTI 0.224 m LVOT Diam s 1.90 cm AoV Vmax 1.03 m/s Velocity Ratio 1.01 AoV Mean Selivn. 0.67 m/s AoV Peak Grad 4.3 mmHg LVOT SV 66.24 mL AoV Mean Grad 2.1 mmHg AoV VTI 0.218 m AoV Area VTI 3.04 cm2 AoV Area/ BSA (VTI) 1.70 cm/m2 Mitral Valve MV DT 256 (160-240 msec) MV PHT 74 msec MV Area PHT 2.97 cm2 Pulmonary Valve PV Vmax 0.96 (0.5-1.5 m/s) RVOT Peak Gr. 2.06 mmHg PV Peak Grad 3.7 mmHg RVOT Mean Gr. 0.90 mmHg PV Mean Grad 2.0 mmHg RVOT VTI 0.152 m PV VTI 0.221 m RVOT Vmax 0.72 m/s Tricuspid Valve TR Peak Grad 14.4 mmHg TR Vmax 1.90 m/s RA Pressure 3.00 mmHg RVSP (TR) 17.5 mmHg
== END 2022-12-19 02:16 ==
LOC: DI 01:56
PROVIDERS: PCP Family Medicine; Visit Provider Family Medicine
DX: R55 Syncope and collapse (principal)
CPT/HCPCS: 93306

== ENCOUNTER 2023-01-04 11:17 | Outpatient (CLI) | payer BC, SELFPAY ==
--- NOTE | 2023-01-04 12:08 | W.CARDEVENT ---
Date of service: 01/04/23 Time of Service: 12:08 Cardiac Event Recorder Referring Provider:: Dorothy Davila Indications:: Syncope Cardiac Event Note: This is a 30-day cardiac event monitor ordered for syncope rhythm throughout was sinus. Average heart rate was 77. Minimum was 57, Maximum 133 There was no atrial fibrillation, no high-grade AV block, no pauses greater than 3 seconds There were no significant ventricular dysrhythmias. There were rare atrial premature beats Patient symptoms were reported which corresponded to sinus rhythm and sinus tachycardia, rates ranging from 100 to 130 bpm
== END 2023-01-04 11:18 | disposition home or self-care (01) ==
LOC: CARDOPNVT 11:17
PROVIDERS: PCP Family Medicine; Visit Provider Internal Medicine Cardiovascular Disease
DX: R55 Syncope and collapse (principal); R00.0 Tachycardia, unspecified